=== PATIENT | female | born 1965 | race Caucasian/White ===

== ENCOUNTER 2018-10-20 14:03 | Emergency (ER) | payer MEDICAID ==
[2018-10-20 14:22] VITALS: BP 120/76; PULSE 80; RESP 18; TEMP 97.5; O2SAT 98
--- NOTE | 2018-10-20 15:34 | C.PDOC ---
History Of Present Illness 53 y/o female presents to the ED for evaluation of knee injury sustained today. Patient states she fell while getting out of bed today. Now reports pain to the left knee. No extremity weakness, numbness, open wounds, or other injury. She denies any head trauma or LOC. Time Seen by Provider: 10/20/18 14:17 Chief Complaint (Nursing): Lower Extremity Problem/Injury History Per: Patient History/Exam Limitations: no limitations Onset/Duration Of Symptoms: Hrs Current Symptoms Are (Timing): Still Present - Knee Description Of Injury: Fell Past Medical History Reviewed: Historical Data, Nursing Documentation, Vital Signs Vital Signs: Last Vital Signs Temp 97.5 F L 10/20/18 14:22 Pulse 80 10/20/18 14:22 Resp 18 10/20/18 14:22 BP 120/76 10/20/18 14:22 Pulse Ox 98 10/20/18 14:22 - Medical History PMH: HTN Family History: States: No Known Family Hx - Social History Hx Alcohol Use: No Hx Substance Use: No - Immunization History Hx Tetanus Toxoid Vaccination: No Hx Influenza Vaccination: No Hx Pneumococcal Vaccination: No Review Of Systems Except As Marked, All Systems Reviewed And Found Negative. Constitutional: Negative for: Fever, Chills Gastrointestinal: Negative for: Nausea, Vomiting Musculoskeletal: Positive for: Leg Pain (left knee). Negative for: Back Pain Skin: Negative for: Lesions, Bruising Neurological: Negative for: Weakness, Numbness Physical Exam - Physical Exam Appears: Well, Non-toxic, No Acute Distress Skin: Warm, Dry, No Rash Head: Atraumatic, Normacephalic Eye(s): bilateral: Normal Inspection Neck: Normal ROM Chest: Symmetrical Respiratory: No Accessory Muscle Use, Other (Normal inspiratory effort) Extremity: Normal ROM (with FROM of the left knee), No Tenderness, Capillary Refill (less than 2 sec), No Deformity, No Swelling Pulses: Left Dorsalis Pedis: Normal, Right Dorsalis Pedis: Normal Neurological/Psych: Oriented x3, Normal Cranial Nerves, Normal Motor, Normal Sensation ED Course And Treatment O2 Sat by Pulse Oximetry: 98 (RA) Pulse Ox Interpretation: Normal - Other Rad Left knee x-ray X-Ray: Read By Radiologist Medical Decision Making Medical Decision Making: Xrays are negative. The patient is ambulatory without pain or difficulty. Disposition - Disposition Referrals: Geovanna Powell MD [Staff Provider] - Disposition: HOME/ ROUTINE Disposition Time: 16:01 Condition: GOOD Additional Instructions: Follow up with the medical doctor within 1-2 days. return if worsened. Prescriptions: Ibuprofen [Motrin] 600 mg PO TID #21 tab Instructions: Knee Sprain (DC) Forms: [employer] ([place]ovenian) - Clinical Impression Clinical Impression: Knee sprain - PA / FORENSICS ANALYST / Resident Statement MD/DO has reviewed & agrees with the documentation as recorded. - Scribe Statement The provider has reviewed the documentation as recorded by the Scribe Mariposa Rueda All medical record entries made by the Scribe were at my direction and personally dictated by me. I have reviewed the chart and agree that the record accurately reflects my personal performance of the history, physical exam, medical decision making, and the department course for this patient. I have also personally directed, reviewed, and agree with the discharge instructions and disposition.
--- NOTE | 2018-10-20 16:23 | RAD ---
Date of service: 10/20/2018 PROCEDURE: Left Knee Radiographs. HISTORY: Pain. COMPARISON: None. TECHNIQUE: 2 views obtained. FINDINGS: BONES: Normal. No fracture. JOINTS: Normal. No osteoarthritis. JOINT EFFUSION: None. OTHER FINDINGS: None. IMPRESSION: Normal radiographs of the left knee. Concordant results with the preliminary interpretation rendered by the emergency department physician procedure.
== END 2018-10-20 16:26 | disposition home or self-care (01) ==
LOC: C.ER 14:03
DX: S83.92XA Sprain of unspecified site of left knee, initial encounter (principal); W06.XXXA Fall from bed, initial encounter; I10 Essential (primary) hypertension